=== PATIENT | male | born 1970 | race Caucasian/White ===

== ENCOUNTER → 2016-03-16 | Outpatient (CLI) | payer BC ==
[~2016-03-16] MED LIST: NIFEREX-150 501 CA1 PO; TRICOR145 MG PO; [UNRECOGNIZED DRUG - CODE] PO
== END ==
LOC: BHSO 08:10
DX: F90.0 Attention-deficit hyperactivity disorder, predominantly inattentive type (principal)

== ENCOUNTER 2016-08-18 07:00 | Outpatient (RCR) | payer OTHER | END 2016-09-20 08:06 | disposition home or self-care (01) | LOC: WSPT 07:00 | DX: M54.5 Low back pain (principal) ==

== ENCOUNTER 2016-08-18 08:16 | Outpatient (RCR) | payer OTHER | END 2016-10-11 | LOC: WSOH | DX: M54.5 Low back pain (principal); X50.0XXS Overexertion from strenuous movement or load, sequela; Y99.0 Civilian activity done for income or pay ==

== ENCOUNTER → 2016-09-07 | Outpatient (CLI) | payer BC | LOC: BHSO 07:57 | DX: F90.0 Attention-deficit hyperactivity disorder, predominantly inattentive type (principal) ==

== ENCOUNTER → 2016-10-26 | Outpatient (CLI) | payer BC | LOC: BHSO 07:57 | DX: F90.0 Attention-deficit hyperactivity disorder, predominantly inattentive type (principal) ==

== ENCOUNTER → 2017-02-01 | Outpatient (CLI) | payer BC | LOC: BHSO 07:59 | DX: F90.0 Attention-deficit hyperactivity disorder, predominantly inattentive type (principal) ==

== ENCOUNTER → 2017-05-02 | Outpatient (CLI) | payer BC | LOC: BHSO 13:29 | DX: F90.0 Attention-deficit hyperactivity disorder, predominantly inattentive type (principal) | CPT/HCPCS: G0463 ==

== ENCOUNTER → 2017-08-03 | Outpatient (CLI) | payer BC | LOC: BHSO 15:16 | DX: F90.0 Attention-deficit hyperactivity disorder, predominantly inattentive type (principal) | CPT/HCPCS: G0463 ==

== ENCOUNTER → 2017-10-19 | Outpatient (CLI) | payer BC | LOC: BHSO 08:23 | DX: F90.0 Attention-deficit hyperactivity disorder, predominantly inattentive type (principal) | CPT/HCPCS: G0463 ==

== ENCOUNTER → 2017-11-30 | Outpatient (CLI) | payer BC | LOC: BHSO 08:01 | DX: F90.0 Attention-deficit hyperactivity disorder, predominantly inattentive type (principal) | CPT/HCPCS: G0463 ==

== ENCOUNTER → 2018-05-29 | Outpatient (CLI) | payer BC | LOC: BHSO 15:39 | DX: F90.0 Attention-deficit hyperactivity disorder, predominantly inattentive type (principal) | CPT/HCPCS: G0463 ==

== ENCOUNTER → 2018-11-27 | Outpatient (CLI) | payer BC | LOC: BHSO 15:44 | DX: F90.0 Attention-deficit hyperactivity disorder, predominantly inattentive type (principal) | CPT/HCPCS: G0463 ==

== ENCOUNTER → 2019-01-15 | Outpatient (CLI) | payer BC | LOC: BHSO 15:15 | DX: F90.0 Attention-deficit hyperactivity disorder, predominantly inattentive type (principal) | CPT/HCPCS: G0463 ==

== ENCOUNTER → 2019-04-02 | Outpatient (CLI) | payer BC | LOC: BHSO 15:38 | DX: F90.0 Attention-deficit hyperactivity disorder, predominantly inattentive type (principal) | CPT/HCPCS: G0463 ==

== ENCOUNTER → 2019-09-12 | Outpatient (CLI) | payer BC | LOC: BHSO 16:06 | DX: F90.0 Attention-deficit hyperactivity disorder, predominantly inattentive type (principal) | CPT/HCPCS: G0463 ==

== ENCOUNTER 2019-09-16 09:45 | Outpatient (RCR) | payer OTHER | END 2019-11-13 | disposition home or self-care (01) | LOC: WSOH | DX: S46.812A Strain of other muscles, fascia and tendons at shoulder and upper arm level, left arm, initial encounter (principal); I10 Essential (primary) hypertension; E78.00 Pure hypercholesterolemia, unspecified; F41.8 Other specified anxiety disorders; F90.9 Attention-deficit hyperactivity disorder, unspecified type; Z98.890 Other specified postprocedural states; Z90.49 Acquired absence of other specified parts of digestive tract; Y99.0 Civilian activity done for income or pay ==

== ENCOUNTER → 2019-12-27 | Outpatient (CLI) | payer BC | LOC: BHSO 07:55 | DX: F90.0 Attention-deficit hyperactivity disorder, predominantly inattentive type (principal) | CPT/HCPCS: G0463 ==

== ENCOUNTER 2020-12-17 07:36 | Day surgery (SDC) | payer BC ==
[~2020-12-17] VITALS: Ht 182.9 cm; Wt 115.9 kg
[2020-12-17 08:17] VITALS: BP 154/108; PULSE 88; TEMP 97.9
[2020-12-17] MEDS ORDERED: LOFIBRA160 MG PO (08:26)
[2020-12-17] MEDS ORDERED: PRIL40 PO (08:26)
[2020-12-17] MEDS ORDERED: RITALIN LA30 MG PO (08:27)
[2020-12-17] MEDS ORDERED: ALBUTEROL0.83 MG/ML IH (08:28)
[2020-12-17] MEDS ORDERED: ACCURETIC 12.51 TA1 PO (08:28)
[2020-12-17] MEDS ORDERED: DULERA1 AR1 IH (08:29)
[2020-12-17] MEDS ORDERED: LOVAZA1 GM PO (08:30)
[2020-12-17 09:15] VITALS: BP 141/91; PULSE 85; TEMP 97.9
[2020-12-17 09:30] VITALS: BP 142/101; PULSE 76
[2020-12-17 09:45] VITALS: BP 129/77; PULSE 80
[2020-12-17 10:00] VITALS: BP 133/78; PULSE 83
--- NOTE | 2020-12-17 10:34 | NUR ---
PT RETURNED FROM ENDO PROCEDURE ROOM INTO BAY #3 PER CART. PT DENIES NAUSEA OR VOMITING. PT WAS IN THE ROOM AT THE TIME OF ARRIVAL. PT ALERT AND DROWSY AND ORIENTATED. VSS, AFEBRILE. PT REQUESTS PEANUT BUTTER TOAST AND COFFEE. WILL CONT TO MONITOR.
--- NOTE | 2020-12-17 10:45 | NUR ---
PT TOLERATING FOOD AND FLUIDS WITHOUT DIFFICULTY. PT IN ROOM TALKING WITH , DENIES NEEDS AT THIS TIME. NOTED ELEVATED BP, PT WAS EATING PEANUTBUTTER TOAST AND DRINKING FLUIDS AT THE TIME OF BP MEASURE. PT BP WAS ELEVATED ON ADMISSION.
--- NOTE | 2020-12-17 10:48 | NUR ---
PT DENIES C/O'S, IVF DISCONNECTED. WILL CONT TO MONITOR.
== END 2020-12-17 10:15 | disposition home or self-care (01) ==
LOC: SDCO 07:36
DX: Z12.11 Encounter for screening for malignant neoplasm of colon (principal); K63.5 Polyp of colon; I10 Essential (primary) hypertension; E78.5 Hyperlipidemia, unspecified; J45.909 Unspecified asthma, uncomplicated; K21.9 Gastro-esophageal reflux disease without esophagitis; F32.9 Major depressive disorder, single episode, unspecified; F41.9 Anxiety disorder, unspecified; Z20.822 Contact with and (suspected) exposure to COVID-19; Z79.899 Other long term (current) drug therapy; Z90.49 Acquired absence of other specified parts of digestive tract; Z83.3 Family history of diabetes mellitus
CPT/HCPCS: J2405; J2704; J3010; J7030

== ENCOUNTER 2023-07-25 15:45 | Outpatient (RCR) | payer BC ==
[~2023-07-25 15:45] MED LIST changes: +ACCURETIC 12.51 TA1 PO; +ALBUTEROL0.83 MG/ML IH; +DULERA1 AR1 IH; +LOFIBRA160 MG PO; +LOVAZA1 GM PO; +PRIL40 PO; +RITALIN LA30 MG PO
== END 2023-07-28 ==
LOC: WSPT
DX: M54.50 Low back pain, unspecified (principal)